=== PATIENT | male | born 1985 | race Caucasian/White ===

== ENCOUNTER → 2017-10-16 | Outpatient (CLI) | payer OTHER ==
--- NOTE | 2017-10-16 16:11 | RADIOLOGY REPORT (SQ) ---
EXAM DESCRIPTION: U/S LTD DUPLEX ART/CRISTIAN FLOW COMPLETED DATE/TIME: 10/16/2017 9:39 am REASON FOR STUDY: ATHEROSCLEROSIS OF RENAL ARTERY I70.1 ATHEROSCLEROSIS OF RENAL ARTERY COMPARISON: None. TECHNIQUE: Realtime and static grayscale images acquired. Selected color Doppler, velocities and spe ctral images recorded. LIMITATIONS: None. FINDINGS: RIGHT KIDNEY: RENAL ARTERY VELOCITIES: 31 cm/sec. Segmental artery velocity 26 cm/sec. RENAL VEIN: Color doppler flow present, patent. VELOCITY RATIO: 0.95. Normal waveforms. KIDNEY: Normal size. No significant pathology. LEFT KIDNEY: RENAL ARTERY VELOCITIES: 49 cm/sec. Segmental artery velocity 36 cm/sec. RENAL VEIN: Color doppler flow present, patent. VELOCITY RATIO: 1.43. Normal waveforms. KIDNEY: Normal size. No significant pathology. BLADDER: Not imaged. OTHER: No other significant finding. IMPRESSION: NO DOPPLER EVIDENCE OF HEMODYNAMICALLY SIGNIFICANT RENAL ARTERY STENOSIS. COMMENT: NORMAL RENAL ARTERY/AORTA VELOCITY RATIO IS LESS THAN OR EQUAL TO 3.5. TECHNICAL DOCUMENTATION: JOB ID: [id number]- All Rights Reserved
== END ==
LOC: RAD 08:32
PROVIDERS: ATTEND Dermatology
DX: I70.1 Atherosclerosis of renal artery (principal)
CPT/HCPCS: 93976